=== PATIENT | male | born 2000 | race Caucasian/White ===

== ENCOUNTER 2018-10-11 10:15 | Emergency (ER) | payer OTHER ==
[~2018-10-11] VITALS: Ht 162.6 cm; Wt 127.3 kg
[~2018-10-11 10:15] MED LIST: ALBU8.5H8 IH; ATOM40 PO; FLUT44HFA IH; GABA-529 PO; MONT10TA21 PO; PROM6.2522 PO
[2018-10-11] MEDS ORDERED: LIDOCAINE 5% TRANSDERMAL PATCH TD ONE (12:00)
[2018-10-11] MEDS ORDERED: CYCL5TAB PO (12:54)
[2018-10-11] MEDS ORDERED: IBUP-2077 PO (12:54)
[2018-10-11 13:30] VITALS: BP 120/76
== END 2018-10-11 13:41 | disposition home or self-care (01) ==
LOC: EMS 10:16
DX: M62.830 Muscle spasm of back (principal); J45.909 Unspecified asthma, uncomplicated; Z98.890 Other specified postprocedural states

== ENCOUNTER 2022-04-23 13:32 | Emergency (ER) | payer OTHER ==
[~2022-04-23] VITALS: Ht 162.6 cm; Wt 118.2 kg
[~2022-04-23 13:32] MED LIST changes: -ALBU8.5H8 IH; -ATOM40 PO; +CYCL5TAB PO; -FLUT44HFA IH; -GABA-529 PO; +IBUP-2077 PO; -MONT10TA21 PO; -PROM6.2522 PO
[2022-04-23 15:26] LABS: COVID AG,FIA SOURCE NASAL SWAB
[2022-04-23] MEDS ORDERED: NIRM1TAB5 PO (16:09)
[2022-04-23 16:28] VITALS: BP 130/79
== END 2022-04-23 16:32 | disposition home or self-care (01) ==
LOC: EMS 13:32
DX: U07.1 COVID-19 (principal); J45.909 Unspecified asthma, uncomplicated; F90.9 Attention-deficit hyperactivity disorder, unspecified type; F40.10 Social phobia, unspecified; Z98.890 Other specified postprocedural states
CPT/HCPCS: 99283